=== PATIENT | female | born 1990 | race Caucasian/White ===

== ENCOUNTER 2017-08-07 11:30 | Inpatient (IN) | payer OTHER ==
[~2017-08-07] VITALS: Ht 165.1 cm; Wt 57.3 kg
[~2017-08-07 11:30] MED LIST: LEVAQUIN 750MG750 M1 PO; NORCO 325 MG-51 TAB PO; PEN-VEE K500 MG PO
[2017-08-26] VITALS (17 sets, daily range): BP systolic 96–114; BP diastolic 42–76; PULSE 54–109; TEMP 97.4–98.2
[2017-08-26 06:53] LABS: BASO % 0.3 % (0.0-2.0); EOS # 0.1 (0.0-0.7); EOS % 1.2 % (0-4.0); GRAN # 7.3 (1.4-6.5); GRAN % 74.6 % (42.2-75.2); LYMPH # 1.6 (1.2-3.4); LYMPH % 16.2 % (20.0-51.0); MEAN CELL VOLUME 92 fl (80.0-100.0); MEAN CORPUSCULAR HGB CONC 33 g/dl (33.0-37.0); MEAN PLATELET VOLUME 12.8 fl (7.4-10.4); MONO # 0.7 (0.1-0.6); MONO % 6.7 % (1.7-9.3); PLATELET COUNT 154 K/mm3 (130-400); RED BLOOD COUNT 3.92 M/mm3 (4.10-5.30); WHITE BLOOD COUNT 9.8 K/mm3 (4.8-10.8)
[2017-08-26 06:54] LABS: HEMOGLOBIN 11.8 g/dl (12.5-16.0); MEAN CORPUSCULAR HEMOGLOBIN 30 pg (27.0-31.0)
[2017-08-27 07:20] LABS: HEMATOCRIT 32.4 % (37.0-47.0); HEMOGLOBIN 10.5 g/dl (12.5-16.0)
[2017-08-27 07:51] VITALS: BP 99/47; PULSE 55; TEMP 98
[2017-08-27 17:08] VITALS: BP 112/62; PULSE 76; TEMP 98.1
[2017-08-27 20:00] VITALS: BP 102/56; PULSE 66; TEMP 98.2
[2017-08-28 08:00] VITALS: BP 108/66; PULSE 67; TEMP 97.8
[2017-08-28] MEDS ORDERED: PERCOCET 325 MG1 TA2 PO (16:02)
[2017-08-28] MEDS ORDERED: MOTRIN 800800 MG/TAB PO (16:02)
== END 2017-08-28 16:40 | disposition home or self-care (01) | DRG 765 ==
LOC: OB 08-26 06:23 → LDR 08-26 13:33 → OB 08-28 16:40 → LDR 09-08 11:30
PROVIDERS: Obstetrics & Gynecology
PROC: 10D00Z1 Extraction of Products of Conception, Low, Open Approach (ICD-10-PCS; principal; 2017-08-26)
PROC: 0UB70ZZ Excision of Bilateral Fallopian Tubes, Open Approach (ICD-10-PCS; 2017-08-26)
DX: O34.211 Maternal care for low transverse scar from previous cesarean delivery (principal); O36.5930 Maternal care for other known or suspected poor fetal growth, third trimester, not applicable or unspecified; N85.8 Other specified noninflammatory disorders of uterus; D62 Acute posthemorrhagic anemia; O99.02 Anemia complicating childbirth; O99.334 Smoking (tobacco) complicating childbirth; F17.210 Nicotine dependence, cigarettes, uncomplicated; Z3A.38 38 weeks gestation of pregnancy; Z37.0 Single live birth; Z40.03 Encounter for prophylactic removal of fallopian tube(s)
CPT/HCPCS: J0690; J1885; J2270; J2370; J2405; J2590; J2765; J7120

== ENCOUNTER → 2018-07-20 | Outpatient (CLI) | payer BC ==
[~2018-07-20] VITALS: Ht 165.1 cm; Wt 53.0 kg
[~2018-07-20] MED LIST changes: +MOTRIN 800800 MG/TAB PO; +PERCOCET 325 MG1 TA2 PO
[2018-07-20 07:47] VITALS: BP 106/63; PULSE 63
[2018-07-20 08:45] VITALS: BP 117/80; PULSE 55
== END ==
LOC: COL.RAD 07:22
DX: E04.1 Nontoxic single thyroid nodule (principal)